=== PATIENT | male | born 1975 | race American Indian/Alaskan Native ===

== ENCOUNTER 2019-08-14 11:09 | Emergency (ER) | payer OTHER ==
--- NOTE | 2019-08-14 11:21 | Emergency Department Report ---
ED Eye Problem HPI - General Chief complaint: Eye Problems Stated complaint: RED AND SWOLLEN EYE Time Seen by Provider: 08/14/19 11:18 Source: patient Mode of arrival: Ambulatory Limitations: No Limitations - History of Present Illness Initial comments: pt is a 44 yo male who presents to the ED with c/o bilateral eye redness that began 4 days ago. he has associated mucus drainage, eyelash crusting, eyelash matting. he denies any contact lens use. he denies any sick contacts. he denies any vision changes. he denies getting anything in the eyes. no PMHx. no allergies to meds. - Related Data Previous Rx's Medication Instructions Recorded Last Taken Type Erythromycin [Erythromycin Ophth 1 applic OP QID 7 Days #1 tube 08/14/19 Unknown Rx Oint] Allergies Allergy/AdvReac Type Severity Reaction Status Date / Time No Known Allergies Allergy Unverified 08/14/19 11:15 ED Review of Systems ROS: Stated complaint: RED AND SWOLLEN EYE Other details as noted in HPI Comment: All other systems reviewed and negative ED Past Medical Hx - Past Medical History Previous Medical History?: No - Surgical History Past Surgical History?: No - Social History Smoking Status: Current Every Day Smoker Substance Use Type: Alcohol - Medications Home Medications: Home Medications Medication Instructions Recorded Confirmed Last Taken Type Erythromycin [Erythromycin Ophth 1 applic OP QID 7 Days #1 tube 08/14/19 Unknown Rx Oint] ED Physical Exam - General Limitations: No Limitations General appearance: alert, in no apparent distress - Head Head exam: Present: atraumatic, normocephalic - Eye Eye exam: Present: PERRL, EOMI, conjunctival injection (bilaterally with mucus crusting present in the eyelashes) - ENT ENT exam: Present: mucous membranes moist - Neurological Exam Neurological exam: Present: alert, oriented X3 - Psychiatric Psychiatric exam: Present: normal affect, normal mood - Skin Skin exam: Present: warm, dry, intact ED Course Vital Signs 08/14/19 11:14 Temperature 97.8 F Pulse Rate 101 H Respiratory 18 Rate Blood Pressure 123/87 O2 Sat by Pulse 98 Oximetry ED Medical Decision Making - Medical Decision Making pt is a 44 yo male who presents to the ED with c/o bilateral eye redness that began 4 days ago. he has associated mucus drainage, eyelash crusting, eyelash matting. he denies any contact lens use. he denies any sick contacts. he denies any vision changes. he denies getting anything in the eyes. no PMHx. no allergies to meds. VSS. on exam: bilateral conjunctival injection with mucus crusting present in the eyelashes. examination consistent with bilateral conjunctivitis. pt given prescription for erythromycin eye ointment. advised pt to please use medication as prescribed. wash your hands very well frequently. wash your bed sheets and pillow cases. if symptoms do not improve follow up with an [facility] certified concierge. return to the emergency room for any new or worsening symptoms. - Differential Diagnosis conjunctivitis, foreign body, scleritis, iritis, blepharitis, dacryocystiti Critical care attestation.: If time is entered above; I have spent that time in minutes in the direct care of this critically ill patient, excluding procedure time. ED Disposition Clinical Impression: Conjunctivitis Qualifiers: Conjunctivitis type: acute Acute conjunctivitis type: unspecified Laterality: bilateral Qualified Code(s): H10.33 - Unspecified acute conjunctivitis, bilateral Disposition: TO HOME OR SELFCARE Is pt being admited?: No Does the pt Need Aspirin: No Condition: Stable Instructions: Conjunctivitis (ED) Additional Instructions: please use medication as prescribed. wash your hands very well frequently. wash your bed sheets and pillow cases. if symptoms do not improve follow up with an [facility] certified concierge. return to the emergency room for any new or worsening symptoms. Prescriptions: Erythromycin [Erythromycin Ophth Oint] 1 applic OP QID 7 Days #1 tube Referrals: RANJIT CONTRERAS MD [Staff Physician] - 2-3 Days Forms: Work/School Release Form(ED) Time of Disposition: 11:26 Print Language: HEBREW
[2019-08-14 11:27] VITALS: BP 123/87
== END 2019-08-14 11:36 | disposition home or self-care (01) ==
LOC: ED 11:09
DX: H10.9 Unspecified conjunctivitis (principal); F17.200 Nicotine dependence, unspecified, uncomplicated

== ENCOUNTER 2019-08-23 09:38 | Emergency (ER) | payer SELFPAY ==
[2019-08-23 09:47] VITALS: BP 139/86
[2019-08-23] MEDS ORDERED: LIDOCAINE (1%) 10 MG/1 ML VIAL 20 ML MDV INFILTRATI ONE (13:38)
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
== END 2019-08-23 14:44 | disposition home or self-care (01) ==
LOC: ED 09:38
DX: L02.11 Cutaneous abscess of neck (principal); F12.10 Cannabis abuse, uncomplicated; Z79.899 Other long term (current) drug therapy